=== PATIENT | female | born 1985 | race Caucasian/White ===

== ENCOUNTER 2017-03-20 09:17 | Inpatient (IN) | payer MEDICAID ==
[2017-03-20] MEDS ORDERED: CARBOPROST 250 MCG INJ IM ×2 (10:00→18:00)
[2017-03-20] MEDS ORDERED: METHYLERGONOVINE 0.2 MG INJ IM ×2 (10:00→18:00)
[2017-03-20] MEDS ORDERED: MISOPROSTOL 200 MCG TAB PR ×2 (10:00→18:00)
[2017-03-20] MEDS ORDERED: OXYTOCIN 30 UNITS/LR 500 ML IV ×3 (10:00→18:00)
[2017-03-20] MEDS: LACTATED RINGER'S 1,000 ML IV ×2 (10:22→12:46)
[2017-03-20] MEDS: AMPICILLIN 2 GM/NS (PMX) 100 ML IVPB (10:25)
[2017-03-20 10:35] LABS: ADD MAN DIFF? NO
[2017-03-20 10:37] LABS: WHITE BLOOD COUNT 8.3 10^3/ul (4.8-10.8)
[2017-03-20 10:37] LABS: ABNORMAL IP MESSAGE 1; BASOPHIL # 0.1 10^3/ul (0.0-0.1); BASOPHILS % 0.6 % (0.0-2.0); EOSINOPHILS # 0.1 10^3/ul (0.0-0.5); EOSINOPHILS % 0.8 % (0.0-7.0); HEMATOCRIT 39.4 % (37.0-47.0); HEMOGLOBIN 13.4 g/dl (12.0-16.0); LYMPHOCYTES # 2.1 10^3/ul (0.8-2.9); LYMPHOCYTES % 25.2 % (15.0-51.0); MEAN CORPUSCULAR HEMOGLOBIN 31.5 pg (29.0-33.0); MEAN CORPUSCULAR VOLUME 92.7 fl (82.0-101.0); MEAN PLATELET VOLUME 13.7 fl (7.4-10.4); MONOCYTE # 0.6 10^3/ul (0.3-0.9); MONOCYTES % 6.9 % (0.0-11.0); NEUTROPHIL # 5.5 10^3/ul (1.6-7.5); NEUTROPHILS % 65.7 % (39.0-77.0); PLATELET COUNT 142 10^3/UL (140-415); RED BLOOD COUNT 4.25 10^6/ul (4.20-5.40); RED CELL DISTRIBUTION WIDTH 14.1 % (11.5-14.5)
[2017-03-20 10:42] LABS: POSITIVE DIFF @See below
[2017-03-20 10:57] LABS: INR 0.86; PROTIME 11.8 Sec (11.9-14.9); PT RATIO 0.9
[2017-03-20 10:58] LABS: PARTIAL THROMBOPLASTIN TIME 25.3 Sec (25.0-35.0)
[2017-03-20] MEDS: AMPICILLIN 1 GM/NS (PMX) 50 ML IVPB (13:00)
[2017-03-20 13:06] LABS: HEPATITIS B SURFACE ANTIGEN NEGATIVE (NEGATIVE)
[2017-03-20] MEDS ORDERED: METOCLOPRAMIDE 10 MG INJ (13:09)
[2017-03-20] MEDS ORDERED: EPHEDrine SULFATE 50 MG/5 ML SYG (13:09)
[2017-03-20] MEDS ORDERED: OXYTOCIN 10 UNIT INJ (13:09)
[2017-03-20] MEDS ORDERED: ONDANSETRON 4 MG INJ (13:09)
[2017-03-20] MEDS ORDERED: morphine SULFATE/PF (10 MG/10 ML) INJ (13:09)
[2017-03-20] MEDS: CEFAZOLIN 2 GM/50 ML (PMX) 50 ML IV (14:29)
[2017-03-20] MEDS: OXYTOCIN 30 UNITS/LR 500 ML IVPB (14:53)
[2017-03-20] MEDS ORDERED: NALOXONE (0.4 MG/ML) INJ IV (15:00)
[2017-03-20] MEDS ORDERED: morphine 2 MG INJ IV (15:00)
[2017-03-20] MEDS ORDERED: DIPHENHYDRAMINE 50 MG INJ IV (15:00)
[2017-03-20] MEDS ORDERED: EPHEDrine SULFATE 50 MG/5 ML SYG IV (15:00)
[2017-03-20] MEDS ORDERED: morphine 4 MG/ML VIAL IV (15:00)
[2017-03-20] MEDS: morphine SULFATE/PF (10 MG/10 ML) INJ SPINAL (15:21)
[2017-03-20 15:29] LABS: RAPID PLASMA REAGIN NONREACTIVE (NR)
[2017-03-20] MEDS: OXYTOCIN 30 UNITS/LR 500 ML IV ×3 (16:19→23:47)
[2017-03-20] MEDS: ONDANSETRON 4 MG INJ IV (16:58)
[2017-03-20] MEDS ORDERED: HYDROCODONE/APAP (5/325) TAB PO (18:00)
[2017-03-20] MEDS: SENNA/DOCUSATE NA (8.6MG/50MG) TAB PO (21:00)
[2017-03-20] MEDS: CEFAZOLIN 1 GM/50 ML (PMX) 50 ML IVPB (21:58)
[2017-03-21] MEDS: OXYTOCIN 30 UNITS/LR 500 ML IV ×2 (03:58→08:16)
[2017-03-21] MEDS: SENNA/DOCUSATE NA (8.6MG/50MG) TAB PO ×2 (08:16→20:02)
[2017-03-21 09:27] LABS: ADD MAN DIFF? NO
[2017-03-21 09:32] LABS: ABNORMAL IP MESSAGE 1; BASOPHILS % 0.3 % (0.0-2.0); EOSINOPHILS # 0.1 10^3/ul (0.0-0.5); EOSINOPHILS % 0.6 % (0.0-7.0); HEMATOCRIT 37.2 % (37.0-47.0); HEMOGLOBIN 12.7 g/dl (12.0-16.0); LYMPHOCYTES # 1.5 10^3/ul (0.8-2.9); LYMPHOCYTES % 12.1 % (15.0-51.0); MEAN CORPUSCULAR HEMOGLOBIN 31.7 pg (29.0-33.0); MEAN CORPUSCULAR HGB CONC 34.1 g/dl (32.0-37.0); MEAN CORPUSCULAR VOLUME 92.8 fl (82.0-101.0); MEAN PLATELET VOLUME 13.2 fl (7.4-10.4); MONOCYTE # 0.7 10^3/ul (0.3-0.9); NEUTROPHIL # 9.6 10^3/ul (1.6-7.5); NEUTROPHILS % 80.4 % (39.0-77.0); PLATELET COUNT 134 10^3/UL (140-415); RED BLOOD COUNT 4.01 10^6/ul (4.20-5.40); RED CELL DISTRIBUTION WIDTH 13.9 % (11.5-14.5)
[2017-03-21 09:35] LABS: POSITIVE DIFF @See below
[2017-03-21] MEDS: KETOROLAC 30 MG INJ IV (11:58)
[2017-03-21] MEDS: IBUPROFEN 600 MG TAB PO ×2 (17:41→23:33)
[2017-03-21] MEDS: HYDROCODONE/APAP (5/325) TAB PO (20:02)
[2017-03-22] MEDS: HYDROCODONE/APAP (5/325) TAB PO (04:09)
[2017-03-22] MEDS: IBUPROFEN 600 MG TAB PO ×4 (05:40→23:28)
[2017-03-22] MEDS: SENNA/DOCUSATE NA (8.6MG/50MG) TAB PO ×2 (10:13→19:50)
[2017-03-22] MEDS: OXYCODONE/ACETAMINOPHEN (5/325) TAB PO ×2 (14:55→19:50)
[2017-03-22] MEDS: NA PHOSPHATE/BIPHOS 133 ML ENEMA PR (15:58)
[2017-03-22] MEDS: LANOLIN 7 GM TUBE TOP (19:50)
[2017-03-23] MEDS: OXYCODONE/ACETAMINOPHEN (5/325) TAB PO ×2 (02:28→08:16)
[2017-03-23] MEDS: IBUPROFEN 600 MG TAB PO ×2 (05:31→11:54)
[2017-03-23] MEDS: DIPHTH/TET/ACEL PERTUSS (ADULT) 0.5 ML VIAL IM* (08:17)
[2017-03-23] MEDS: SENNA/DOCUSATE NA (8.6MG/50MG) TAB PO (08:17)
== END 2017-03-23 16:35 | disposition home or self-care (01) | DRG 766 ==
LOC: L-D 09:17 → PP1 18:00
PROVIDERS: Obstetrics & Gynecology
PROC: 10D00Z1 Extraction of Products of Conception, Low, Open Approach (ICD-10-PCS; principal; 2017-03-20 12:30)
PROC: 3E033VJ Introduction of Other Hormone into Peripheral Vein, Percutaneous Approach (ICD-10-PCS; 2017-03-20 12:30)
DX: O34.211 Maternal care for low transverse scar from previous cesarean delivery (principal); Z37.0 Single live birth; Z3A.39 39 weeks gestation of pregnancy
CPT/HCPCS: 85025; 85610; 85730; 86592; 86850; 86900; 86901; 87340; 90715; 94760; 99464